=== PATIENT | male | born 2000 | race Caucasian/White ===

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

== ENCOUNTER → 2019-01-23 | Emergency (ER) | payer SELFPAY ==
[~2019-01-23] VITALS: Ht 162.6 cm; Wt 62.0 kg
[~2019-01-23] MED LIST changes: -AMO500 PO; +AMOX500C2 PO; +IBUP-1561 PO; -IBUP400T22 PO; +ONDA4TAB14 PO; +ONDANSETRON (ODT) 4 MG TAB ODT STA
[2019-01-23 12:59] VITALS: BP 130/69; PULSE 85; RESP 18; Ht 162.6 cm; Wt 62.0 kg
--- NOTE | 2019-01-23 13:09 | EN ---
Date/Time of Note Date/Time of Note DATE: 01/23/19 TIME: 13:08 ER Progress Note Medical screening -5-jzma- male with sudden onset left mid abdominal pain associated with feeling like passing out. Patient well-appearing. Further study required such as urine. ED 2 appropriate. EMILY JONES MD Jan 23, 2019 13:09
--- NOTE | 2019-01-23 14:41 | ERD ---
ER Documentation Chief Complaint Chief Complaint abdominal pain today HPI 18-year-old male presenting with dizziness and shortness of breath x1 day. Patient was at work and started feeling short of breath and feel he could have a deep breath. He has some mild nausea and keeps gagging. He denies any abdominal pain per se. Denies of headaches or vision changes. Has a history of anxiety this is slightly different. He denies any fevers. Has not taken medications for his symptoms. Medical history is seizures however his last seizure was 9 years ago. Is not on medications. NKDA. Surgical history denies. Social history denies. Denies alcohol abuse ROS All systems reviewed and are negative except as per history of present illness. Medications Home Meds Active Scripts Ondansetron (Ondansetron Odt) 4 Mg Tab.rapdis, 4 MG PO Q6H PRN for NAUSEA AND/OR VOMITING, #10 TAB Prov:PAIGE MERCEDES PA-C 01/23/19 Ondansetron (Ondansetron Odt) 4 Mg Tab.rapdis, 4 MG PO Q8 PRN for NAUSEA AND/OR VOMITING, #30 TAB Prov:MACO CANCHOLA NP 12/28/16 Amoxicillin* (Amoxicillin*) 500 Mg Cap, 500 MG PO TID for 10 Days, CAP Prov:IRIS JORDAN PA-C 01/06/16 Acetaminophen* (Tylophen*) 500 Mg Capsule, 1 CAP PO Q6H PRN for PAIN AND OR ELEVATED TEMP, #20 CAP Prov:IRIS JORDAN PA-C 01/06/16 Ibuprofen* (Motrin*) 400 Mg Tab, 400 MG PO Q6, #20 TAB Prov:IRIS JORDAN PA-C 01/06/16 Reported Medications [Denies] No Conflict Check 05/01/11 Allergies Allergies: Coded Allergies: No Known Drug Allergies (Verified Allergy, Unknown, 01/06/16) PMhx/Soc Anesthesia Reaction: No Hx Neurological Disorder: No Hx Respiratory Disorders: No Hx Cardiac Disorders: No Hx Psychiatric Problems: No Hx Miscellaneous Medical Probl: No Hx Alcohol Use: No Hx Substance Use: No Hx Tobacco Use: No Smoking Status: Never smoker FmHx Family History: No diabetes, No coronary disease, No other Physical Exam Vitals Vital Signs Date Temp Pulse Resp B/P (MAP) Pulse Ox O2 O2 Flow FiO2 Time Delivery Rate 01/23/19 98.2 85 18 130/69 100 12:59 (89) Physical Exam GENERAL: The patient is well-appearing, well-nourished, in no acute distress HEENT: Atraumatic. Conjunctivae are pink. Pupils equal, round, and reactive to light. There is no scleral icterus. Tympanic membranes clear bilaterally. Oropharynx clear. NECK: C-spine is soft and supple. There is no meningismus. There is no cervical lymphadenopathy. CHEST: Clear to auscultation bilaterally. There are no rales, wheezes or rhonchi. HEART: Regular rate and rhythm. No murmurs, clicks, rubs or gallops ABDOMEN:Soft, nontender and nondistended. Good bowel sounds. No rebound or guarding. No gross peritonitis. No gross organomegaly or masses. BACK: No midline or flank tenderness. Results 24 hrs Laboratory Tests Test 01/23/19 13:47 Bedside Glucose 87 mg/dL Current Medications Medications Dose Sig/[place] Start Time Status Last (Trade) Ordered Route PRN Stop Time Admin Dose Reason Admin Ondansetron 4 mg ONCE STAT 01/23/19 DC 01/23/19 HCl (Zofran ODT 13:36 13:44 Odt) 01/23/19 13:38 Procedures/MDM DIAGNOSTIC IMAGING REPORT Patient: MANDO SOW : 2000 Age: 18 Sex: M MR #: [id number] DOS: 01/23/19 1336 Ordering MD: BOBBY MERCEDES PA-C Location: [facility] Room/Bed: PROCEDURE: XR Chest. CLINICAL INDICATION: Tightness. TECHNIQUE: Chest, 1 view. COMPARISON: None. FINDINGS: The cardiomediastinal silhouette is normal in size. No focal consolidation is seen. No pleural effusion is seen. No definite pneumothorax is seen. No acute osseous abnormality. IMPRESSION: No radiographic evidence of an acute cardiopulmonary process. MDM: 21-year-old male presenting with dizziness and shortness of breath. Neuro exam is within normal limits and patient's chest x-ray is within normal limits. Patient's vitals are stable patient is nontoxic-appearing. I have low suspicion for intracranial hemorrhage or neuro deficit. I have low suspicion for cardiac or pulmonary emergency. I have low suspicion for acute abdominal emergency. I do not feel that patient requires blood work or imaging. Patient is discharged with strict ER precautions and told to follow-up with primary care within 1 to 2 days for close evaluation. Patient is told symptoms change or worsen to return immediately to the ER. All questions answered at discharge Departure Diagnosis: Primary Impression: Abdominal pain Condition: Stable Patient Instructions: Abdominal Pain, Coping with Shortness of Breath: Controlling Stress Referrals: [facility] YOU HAVE RECEIVED A MEDICAL SCREENING EXAM AND THE RESULTS INDICATE THAT YOU DO NOT HAVE A CONDITION THAT REQUIRES URGENT TREATMENT IN THE EMERGENCY DEPARTMENT. FURTHER EVALUATION AND TREATMENT OF YOUR CONDITION CAN WAIT UNTIL YOU ARE SEEN IN YOUR DOCTORS OFFICE WITHIN THE NEXT 1-2 DAYS. IT IS YOUR RESPONSIBILITY TO MAKE AN APPOINTMENT FOR FOLOW-UP CARE. IF YOU HAVE A PRIMARY DOCTOR --you should call your primary doctor and schedule an appointment IF YOU DO NOT HAVE A PRIMARY DOCTOR YOU CAN CALL OUR PHYSICIAN REFERRAL HOTLINE AT IF YOU CAN NOT AFFORD TO SEE A PHYSICIAN YOU CAN CHOSE FROM THE FOLLOWING [facility] [address] [facility] [address] [facility] [facility] [address] [facility] [address] [facility] [address] [facility] [facility]. [address] Additional Instructions: FOLLOW UP WITH YOUR PRIMARY CARE PHYSICIAN TOMORROW.Return to this facility if you are not improving as expected. PAIGE MERCEDES PA-C Jan 23, 2019 14:41
== END | disposition home or self-care (01) ==
LOC: FTE 12:56
DX: R10.9 Unspecified abdominal pain (principal)
CPT/HCPCS: 71045; 82962